=== PATIENT | male | born 1950 | race Caucasian/White ===

== ENCOUNTER 2017-02-02 14:55 | Emergency (ER) | payer OTHER ==
[~2017-02-02] VITALS: Ht 165.1 cm; Wt 57.6 kg
[~2017-02-02 14:55] MED LIST: MULTTAB58 PO
[2017-02-02 14:58] VITALS: Ht 165.1 cm; Wt 57.6 kg
--- NOTE | 2017-02-02 15:09 | EMERGENCY ROOM VISIT NOTE ---
ED Visit Note First contact with patient: 15:03 CHIEF COMPLAINT: Hand laceration HISTORY OF PRESENT ILLNESS: This 66-year-old male patient presents to the emergency department ambulatory after cutting the left hand at work just prior to arrival while using a utility knife. The bleeding has not stopped. Denies weakness or numbness of the hand or fingers. The patient denies any pain. The patient denies any other injuries. The patient's Tetanus shot is up to date. REVIEW OF SYSTEMS: A 6 system review of systems was completed with positives and pertinent negatives listed in the HPI. ALLERGIES: No known drug allergies MEDICATIONS: Patient denies PMH: Patient denies SOCIAL HISTORY: The patient lives locally. He is employed. PHYSICAL EXAM: Vital Signs: Reviewed Nurse's notes, vital signs stable. GENERAL : This is a 66-year-old male, in no acute distress, well-developed, well- nourished. SKIN: There is a 3.5 cm long laceration on the palmar aspect of the left hand. The edges gape apart with traction. There is no foreign material in the wound and it looks clean. There is moderate bleeding. No deep structures such as tendons, bones, or nerves are seen in the base of the wound. Normal strength and movement of the fingers and wrist. Capillary refill less than 2 seconds. Normal sensation to light and sharp touch. EMERGENCY DEPARTMENT COURSE: I examined the patient. Using sterile technique the wound was cleaned with Betadine. The area was sterilely draped. 6 ml of 1% buffered lidocaine was used to anesthetize the laceration on the hand. Once the patient was numb, the wound was copiously irrigated under pressure with sterile saline. The wound was explored in a bloodless field after a blood pressure cuff tourniquet was applied to the forearm and there was no obvious tendon involvement. The laceration was repaired using 3 subcuticular 5-0 Vicryl sutures were used to close the muscle belly and subcutaneous structures and 9 simple interrupted 5-0 nylon sutures were used to close the skin with the wound edges being well approximated. The patient tolerated the procedure well. The bleeding stopped. The area was cleaned with sterile saline and dressed with bacitracin ointment and bandage. The patient works in a very dirty environment. He will be placed on Keflex to help prevent infection. He was placed in a removable thumb spica splint. He was encouraged to follow-up with orthopedics immediately if he has any difficulty moving the finger or persistent numbness. The patient was discharged home in good condition. DIAGNOSIS: Hand laceration DISCHARGE INSTRUCTIONS & TREATMENT: Keep wound clean and dry. Do not allow any crusting or dried blood to accumulate on sutures. If this occurs, use a 1:1 solution of hydrogen peroxide/water on a Q-tip to clean the wound. Use an antibiotic ointment for 3-4 days, then let wound dry. Suture removal in 10-12 days. Return sooner for any signs of infection (increasing redness, swelling, drainage). Ice and elevate for swelling and pain. Ibuprofen 600 mg every 6 hrs for pain. Keep covered when in sun until sutures removed then SPF 50 or higher for one year. Vitamin E oil if desired two weeks after suture removal for reduction of scar. Keflex as prescribed, until finished to help prevent infection Wear the splint to help decrease movement of the hand and thumb as the wound heals Follow-up immediately with orthopedics with any persistent numbness, weakness or trouble moving the finger Current/Historical Medications Scheduled Cephalexin Monohydrate (Keflex), 500 MG PO TID Multiple Vitamin (Multivitamin), 1 TAB PO DAILY Allergies Coded Allergies: No Known Allergies (Unverified , 02/02/17) Vital Signs Date Time Temp Pulse Resp B/P (MAP) Pulse Ox O2 Delivery O2 Flow Rate FiO2 02/02/17 16:02 37.2 89 16 151/98 92 02/02/17 14:58 37.2 89 16 151/98 92 Room Air Departure Information Impression Primary Impression: Hand laceration Additional Impression: Work related injury Dispostion Home / Self-Care Condition GOOD Prescriptions Cephalexin Monohydrate (Keflex) 500 Mg Cap 500 MG PO TID for 7 Days, #21 CAP Prov: Andreia Hand PA-C 02/02/17 Referrals No Doctor, Assigned (PCP) Dre Polanco MD Forms HOME CARE DOCUMENTATION FORM, IMPORTANT VISIT INFORMATION, WORK / SCHOOL INSTRUCTIONS Patient Instructions ED Laceration All, [facility] Additional Instructions Keep wound clean and dry. Do not allow any crusting or dried blood to accumulate on sutures. If this occurs, use a 1:1 solution of hydrogen peroxide/ water on a Q-tip to clean the wound. Use an antibiotic ointment for 3-4 days, then let wound dry. Suture removal in 10-12 days. Return sooner for any signs of infection (increasing redness, swelling, drainage). Ice and elevate for swelling and pain. Ibuprofen 600 mg every 6 hrs for pain. Keep covered when in sun until sutures removed then SPF 50 or higher for one year. Vitamin E oil if desired two weeks after suture removal for reduction of scar. Keflex as prescribed, until finished to help prevent infection Wear the splint to help decrease movement of the hand and thumb as the wound heals Follow-up immediately with orthopedics with any persistent numbness, weakness or trouble moving the finger Work Instructions Additional Work Instructions: Limited use of the left hand, must wear splint for 10 days Problem Qualifiers Primary Impression: Hand laceration Encounter type: initial encounter Foreign body presence: without foreign body Laterality: left Qualified Codes: S61.412A - Laceration without foreign body of left hand, initial encounter
[2017-02-02] MEDS ORDERED: XYLOCAINE 1%/SOD BICARB 20 ML VIAL INFIL ONE (15:15)
[2017-02-02] MEDS ORDERED: CEPH500C PO (15:48)
[2017-02-02 16:02] VITALS: BP 151/98; PULSE 89; TEMP 37.2; O2SAT 92
== END 2017-02-02 16:02 | disposition home or self-care (01) ==
LOC: C.EDB 14:56 → C.EDD 16:02
DX: S61.412A Laceration without foreign body of left hand, initial encounter (principal); W26.0XXA Contact with knife, initial encounter; Y92.89 Other specified places as the place of occurrence of the external cause; Y99.0 Civilian activity done for income or pay